=== PATIENT | female | born 1990 | race Caucasian/White ===

== ENCOUNTER → 2018-03-06 | Outpatient (CLI) | payer OTHER ==
--- NOTE | 2018-03-06 14:36 | RAD ---
CT of the abdomen and pelvis without contrast, 03/06/2018: HISTORY: Kidney infection, left flank pain Noncontrast scans were obtained utilizing the renal stone protocol. No intrarenal calculi are identified. The renal collecting systems and ureters are not dilated. No ureteral calculus is identified. Two pelvic calcifications on the left are probably phleboliths. The partially filled urinary bladder is unremarkable. The unopacified liver is unremarkable. No gallbladder abnormality is seen. The pancreas shows no abnormality. The spleen is of normal size. The uterus is at the upper limits of normal in size. The ovaries are unremarkable. The bowel loops are not dilated. There is a small amount of radiopaque material in the appendix. The appendix is not dilated and there is no evidence of appendiceal inflammation. No free fluid or free air is evident in the abdomen or pelvis. IMPRESSION: No urinary tract calculi are identified. PQRS Compliance Statement: One or more of the following individualized dose reduction techniques were utilized for this examination: 1. Automated exposure control 2. Adjustment of the mA and/or kV according to patient size 3. Use of iterative reconstruction technique Electronically signed by: Estuardo Scott MD (03/06/2018 2:32 PM) [facility]
== END | disposition home or self-care (01) ==
LOC: CT 13:57
PROVIDERS: ATTEND Physician Assistant
DX: N12 Tubulo-interstitial nephritis, not specified as acute or chronic (principal); M54.5 Low back pain; R35.0 Frequency of micturition
CPT/HCPCS: 74176

== ENCOUNTER → 2018-05-03 | Outpatient (CLI) | payer OTHER ==
[2018-05-03 15:33] LABS: BASO % 1 % (0-3); EOS % 1 % (0-3); HEMATOCRIT 42.2 % (36.0-47.0); LYMPH # 2.1 x10^3/uL (1.0-4.8); LYMPH % 41 % (24-48); MEAN CORPUSCULAR HEMOGLOBIN 28 pg (25-35); MEAN CORPUSCULAR HGB CONC 33 g/dL (31-37); MEAN CORPUSCULAR VOLUME 85 fL (79-100); MONO # 0.3 x10^3/uL (0.0-1.1); MONO % 6 % (0-9); NEUT # 2.7 x10^3uL (1.8-7.7); NEUT % 52 % (31-73); PLATELET COUNT 302 x10^3/uL (140-400); RED BLOOD COUNT 4.96 x10^6/uL (3.50-5.40); RED CELL DISTRIBUTION WIDTH 14.2 % (11.5-14.5); WHITE BLOOD COUNT 5.2 x10^3/uL (4.0-11.0)
[2018-05-03 15:49] LABS: ALBUMIN 4.2 g/dL (3.4-5.0); ALBUMIN/GLOBULIN RATIO 1.1 (1.0-1.7); CREATININE 0.7 mg/dL (0.6-1.0); GFR 99.6; POTASSIUM 3.7 mmol/L (3.5-5.1); TOTAL BILIRUBIN 0.5 mg/dL (0.2-1.0); TOTAL PROTEIN 7.9 g/dL (6.4-8.2)
[2018-05-04 05:12] LABS: ESTRADIOL LEVEL 62.1 pg/mL (.); FSH 8.4 mIU/mL (.); LUTEINIZING HORMONE 6.5 mIU/mL (.)
[2018-05-04 13:15] LABS: INSULIN LEVEL 5.2 uIU/mL (2.6-24.9)
[2018-05-04 13:24] LABS: FREE T4 0.99 ng/dL (0.76-1.46); THYROID STIM HORMONE (TSH) 1.614 uIU/mL (0.358-3.740)
[2018-05-05 23:12] LABS: ESTROGEN LEVEL 145 pg/mL (.)
[2018-05-06 09:10] LABS: TESTOSTERONE FREE 0.34 ng/dL (0.10-0.85); TESTOSTERONE TOTAL 30 ng/dL (8-48)
== END | disposition home or self-care (01) ==
LOC: LAB 15:09
PROVIDERS: ATTEND Nurse Practitioner Family
DX: E16.1 Other hypoglycemia (principal); R51 Headache; R53.1 Weakness
CPT/HCPCS: 36415; 80053; 82670; 82672; 83001; 83002; 83525; 84402; 84403; 84439; 84443; 85025

== ENCOUNTER 2018-09-03 10:25 | Emergency (ER) | payer OTHER ==
[~2018-09-03] VITALS: Ht 157.5 cm; Wt 70.3 kg
--- NOTE | 2018-09-03 11:13 | PHYS DOC ---
Past History Past Medical History: Other Additional Past Medical Histor: acute intermittent porphyria Past Surgical History: No Surgical History Smoking: Non-smoker Alcohol Use: None Drug Use: None Adult General Chief Complaint Chief Complaint: MULTIPLE TRAUMA/FALL [facility] HPI Patient is a 28-year-old female presents complaining of shortness of breath and upper abdominal pain for the past 4 days. She has been going through evaluation for porphyria because of having these symptoms multiple times previously and her most recent to test came back positive for this diagnosis. Denies any syncopal episode but felt like she was going to pass out earlier. She has not had any r elief with her home medicines. She attempted to contact her clinic at who is evaluating her for this and was directed to the emergency department. Reports that the pain is severe in nature. Left upper abdominal region[] Review of Systems Review of Systems Constitutional: Denies fever or chills [] Eyes: Denies change in visual acuity, redness, or eye pain [] HENT: Denies nasal congestion or sore throat [] Respiratory: Denies cough, see history of present illness[] Cardiovascular: No additional information not addressed in HPI [] GI: See history of present illness[] : Denies dysuria or hematuria [] Musculoskeletal: Denies back pain or joint pain [] Integument: Denies rash or skin lesions [] Neurologic: Denies headache, focal weakness or sensory changes [] Endocrine: Denies polyuria or polydipsia [] All other systems were reviewed and found to be within normal limits, except as documented in this note. Allergies Allergies Allergies Coded Allergies Type Severity Reaction Last Updated Verified No Known Drug Allergies 09/03/18 No Physical Exam Physical Exam Constitutional: Well developed, well nourished, no acute distress, non-toxic appearance. [] HENT: Normocephalic, atraumatic, bilateral external ears normal, oropharynx moist, no oral exudates, nose normal. [] Eyes: PERRLA, EOMI, conjunctiva normal, no discharge. [] Neck: Normal range of motion, no tenderness, supple, no stridor. [] Cardiovascular:Heart rate regular rhythm, no murmur [] Lungs & Thorax: Bilateral breath sounds clear to auscultation [] Abdomen: Bowel sounds normal, soft, tenderness in the left upper quadrant without rebound, guarding, or rigidity. She is able to sit up and lay back without any difficulty, no masses, no pulsatile masses. [] Skin: Warm, dry, no erythema, no rash. [] Back: No tenderness, no CVA tenderness. [] Extremities: No tenderness, no cyanosis, no clubbing, ROM intact, no edema. [] Neurologic: Alert and oriented X 3, normal motor function, normal sensory function, no focal deficits noted. [] Psychologic: Affect normal, judgement normal, mood normal. [] Current Patient Data Vital Signs Vital Signs Date Time Temp Pulse Resp B/P (MAP) Pulse Ox O2 Delivery O2 Flow Rate FiO2 09/03/18 10:40 97.5 89 20 100 Room Air EKG EKG EKG showed a sinus tachycardia at 107 bpm, normal axis, normal QTC, no ST elevation. No old EKG available for comparison. Interpreted by me at 1152.[] Radiology/Procedures Radiology/Procedures [] Course & Med Decision Making Course & Med Decision Making Pertinent Labs and Imaging studies reviewed. (See chart for details) ED course: Patient arrived, was placed in bed, and tolerated exam well. She was feeling much better after IV fluids and pain medicines. Her heart rate improved from the 100s to the 80s to 90s. She was oral intake tolerant. She was discharged in improved condition. Medical decision making: Patient in the process of evaluation for acute intermittent porphyria and has had positive tests 2 for this according to her. Believe this is an exacerbation of her porphyria. No evidence of intractable nausea and vomiting. No evidence of a PE. No evidence of pancreatitis.[] Dragon Disclaimer Dragon Disclaimer This electronic medical record was generated, in whole or in part, using a voice recognition dictation system. Departure Departure: Impression: Primary Impression: Acute intermittent porphyria Disposition: HOME, SELF-CARE Condition: IMPROVED Referrals: HOLLIS RIGGINS MD (PCP) Follow-up in 2 days Patient Instructions: Porphyria Additional Instructions: Follow-up with your regular doctor in 2 days. Return to the ER if worsening pain, unable to tolerate liquids, or any other concerns. Scripts Metoclopramide Hcl (REGLAN) 10 Mg Tablet 10 MG PO QID for nausea and vomiting, #30 TAB Prov: MALA VARELA DO 09/03/18 Hyoscyamine Sulfate (LEVSIN) 0.125 Mg Tablet 0.125 MG PO QID for abdominal pain/cramping, #30 TAB Prov: MALA VARELA DO 09/03/18 MALA VARELA DO Sep 03, 2018 11:13
[2018-09-03] MEDS ORDERED: IV DEXTROSE 10% 1,000 ML IV ONE (11:15)
[2018-09-03] MEDS ORDERED: IV 1/2 NORMAL SALINE 1,000 ML IV ONE (11:15)
[2018-09-03 11:29] LABS: BASO % 0 % (0-3); EOS # 0.1 x10^3/uL (0.0-0.7); EOS % 1 % (0-3); HEMOGLOBIN 15.3 g/dL (12.0-15.5); LYMPH # 0.6 x10^3/uL (1.0-4.8); LYMPH % 6 % (24-48); MEAN CORPUSCULAR HEMOGLOBIN 29 pg (25-35); MEAN CORPUSCULAR HGB CONC 34 g/dL (31-37); MEAN CORPUSCULAR VOLUME 85 fL (79-100); MONO # 0.4 x10^3/uL (0.0-1.1); MONO % 4 % (0-9); NEUT # 8.6 x10^3uL (1.8-7.7); NEUT % 88 % (31-73); PLATELET COUNT 259 x10^3/uL (140-400); RED BLOOD COUNT 5.29 x10^6/uL (3.50-5.40); WHITE BLOOD COUNT 9.7 x10^3/uL (4.0-11.0)
[2018-09-03] MEDS ORDERED: MORPHINE SULFATE 4 MG/ML DISP.SYRIN. IV ONE (11:30)
[2018-09-03] MEDS ORDERED: PROCHLORPERAZINE 10 MG/2 ML VIAL. IV ONE (11:30)
[2018-09-03 11:40] LABS: ALBUMIN 4.3 g/dL (3.4-5.0); ALBUMIN/GLOBULIN RATIO 1.1 (1.0-1.7); CALCIUM 9.2 mg/dL (8.5-10.1); CREATININE 0.8 mg/dL (0.6-1.0); GFR 85.4; POTASSIUM 3.9 mmol/L (3.5-5.1); TOTAL BILIRUBIN 0.9 mg/dL (0.2-1.0); TOTAL PROTEIN 8.2 g/dL (6.4-8.2)
[2018-09-03 11:59] LABS: BACTERIA,URINE 0 /HPF (0-FEW); BILIRUBIN,URINE NEG (NEG); CLARITY,URINE HAZY; COLOR,URINE YELLOW; GLUCOSE,URINE NEG (NEG); NITRITE,URINE NEG (NEG); RBC,URINE 0 /HPF (0-2); SQUAMOUS EPITHELIAL CELL,UR MOD /LPF; UROBILINOGEN,URINE 0.2 mg/dL (0.2 mg/dL); WBC,URINE RARE /HPF (0-4)
[2018-09-03] MEDS ORDERED: HYOS0.1264 PO (12:26)
[2018-09-03] MEDS ORDERED: METO10TA81 PO (12:26)
[2018-09-03 12:42] VITALS: BP 119/64
--- NOTE | 2018-09-03 16:09 | EKG ---
[address] [address] Test Date: 2018-09-03 Test Time: 11:51:19 Pat Name: ALAINA RAND Department: Room: Gender: F Education Spec: ROEL : 1990 Requested By: MALA VARELA Order Number: [id number] Reading MD: Measurements Intervals Edmond Rate: 107 P: 63 RI: 90 QRS: 75 QRSD: 82 T: 43 QT: 340 QTc: 459 Interpretive Statements SINUS TACHYCARDIA QRS(T) CONTOUR ABNORMALITY CONSIDER ANTEROLATERAL MYOCARDIAL DAMAGE POSSIBLY ABNORMAL ECG RI6.01 No previous ECG available for comparison
== END 2018-09-03 12:44 | disposition home or self-care (01) ==
LOC: ER 10:25
DX: E80.29 Other porphyria (principal)
CPT/HCPCS: 36415; 80053; 81001; 83690; 85025; 85379; 85610; 93005; 96374; 96375; 99285; J0780; J2270; J7030

== ENCOUNTER 2018-12-03 03:20 | Emergency (ER) | payer OTHER ==
[~2018-12-03] VITALS: Ht 157.5 cm; Wt 70.3 kg
[~2018-12-03 03:20] MED LIST: HYOS0.1264 PO; METO10TA81 PO
[2018-12-03 03:22] VITALS: BP 122/79
[2018-12-03] MEDS ORDERED: guaiFENesin DM 600/30MG 1 TAB TAB.ER.12H PO STA (03:46)
[2018-12-03] MEDS ORDERED: guaiFENesin DM 600/30MG 1 TAB TAB.ER.12H PO ONE (03:47)
[2018-12-03] MEDS ORDERED: GUAI-112 PO (03:56)
[2018-12-03] MEDS ORDERED: AMOX500T PO (03:56)
[2018-12-03] MEDS ORDERED: MELO7.5T29 PO (03:56)
--- NOTE | 2018-12-03 03:56 | PHYS DOC ---
Past History Past Medical History: Other Additional Past Medical Histor: acute intermittent porphyria Past Surgical History: Other Smoking: Non-smoker Alcohol Use: None Drug Use: None Adult General Chief Complaint Chief Complaint: EARACHE/EAR PAIN HPI HPI Patient is a 28-year-old female who is been having some intermittent your discomfort over the past several weeks. Tonight at approximately midnight she was blowing to try to equalize the pressure in her ears and had increased pain in her right ear that will not stop since that time. No relief with trying hydrogen peroxide. No significant sinus congestion. No nausea, vomiting, or dizziness. No relief with acetaminophen. She reports being unable to sleep due to the pain. Pain is sharp and moderate to severe. No radiation of the discomfort.[] Review of Systems Review of Systems Constitutional: Denies fever or chills [] Eyes: Denies change in visual acuity, redness, or eye pain [] HENT: Denies nasal congestion or sore throat, see history of present illness [] Respiratory: Denies cough or shortness of breath [] Cardiovascular: No additional information not addressed in HPI [] GI: Denies abdominal pain, nausea, vomiting, bloody stools or diarrhea [] : Denies dysuria or hematuria [] Musculoskeletal: Denies back pain or joint pain [] Integument: Denies rash or skin lesions [] Neurologic: Denies headache, focal weakness or sensory changes [] Endocrine: Denies polyuria or polydipsia [] All other systems were reviewed and found to be within normal limits, except as documented in this note. Current Medications Current Medications Current Medications Medications (Trade) Dose Ordered Sig/Henrik Start Time Stop Time Status Last Admin Dose Admin Guaifenesin (MUCINEX ER with DM) 1 tab STK-MED ONCE 12/03/18 03:47 12/03/18 03:48 DC Allergies Allergies Allergies Coded Allergies Type Severity Reaction Last Updated Verified acetaminophen Allergy Unknown 12/03/18 Yes oxycodone Allergy Unknown 12/03/18 Yes Physical Exam Physical Exam Constitutional: Well developed, well nourished, no acute distress, non-toxic appearance. [] HENT: Normocephalic, atraumatic, bilateral external ears normal, no pain with tragus tug. Right TM is bulging, small fluid meniscus. Left TM is normal. Oropharynx moist, no oral exudates, nose normal. [] Eyes: PERRLA, EOMI, conjunctiva normal, no discharge. [] Neck: Normal range of motion, no tenderness, supple, no stridor. [] Cardiovascular:Heart rate regular rhythm, no murmur [] Lungs & Thorax: Bilateral breath sounds clear to auscultation [] Abdomen: Not examined. [] Skin: Warm, dry, no erythema, no rash. [] Back: No tenderness, no CVA tenderness. [] Extremities: No tenderness, no cyanosis, no clubbing, ROM intact, no edema. [] Neurologic: Alert and oriented X 3, normal motor function, normal sensory funct ion, no focal deficits noted. [] Psychologic: Affect normal, judgement normal, mood normal. [] Current Patient Data Vital Signs Vital Signs Date Time Temp Pulse Resp B/P (MAP) Pulse Ox O2 Delivery O2 Flow Rate FiO2 12/03/18 03:22 97.8 75 18 100 Room Air EKG EKG [] Radiology/Procedures Radiology/Procedures [] Course & Med Decision Making Course & Med Decision Making Pertinent Labs and Imaging studies reviewed. (See chart for details) ED course and medical decision making: Patient arrived, was placed in bed, and tolerated exam well. She was given initial doses of medicine in the emergency department. Discussed findings and plan with the patient voiced understanding. All questions were answered. She was discharged in improved condition. This appears to be an otitis media with eustachian tube dysfunction on the right side. There is no evidence of meningitis, encephalitis, perforated tympanic membrane, nor systemic toxicity. No mastoiditis.[] Dragon Disclaimer Dragon Disclaimer This electronic medical record was generated, in whole or in part, using a voice recognition dictation system. Departure Departure: Impression: Primary Impression: Right otitis media Additional Impression: Eustachian tube dysfunction Disposition: 01 HOME, SELF-CARE Condition: IMPROVED Referrals: ALVAREZ MÁRQUEZ (PCP) Follow-up in 2 days Patient Instructions: Otitis Media, Adult Additional Instructions: Follow-up with your regular doctor in 2 days. Take the medication as prescribed. Return to the ER if worsening discomfort or any other concerns. Scripts Guaifenesin/Pseudoephedrne Hcl (MUCINEX D ER 600-60 MG TABLET) 1 Each Tab.er.12h 1 EACH PO BID for eustacian tube dysfunction for 10 Days, #20 TAB.SR Prov: EULALIAASHISHMALA DOSHI 12/03/18 Meloxicam (MELOXICAM) 7.5 Mg Tablet 7.5 MG PO DAILY for PAIN, #20 TAB Prov: MALA VARELA DO 12/03/18 Amoxicillin (AMOXICILLIN) 500 Mg Tablet 500 MG PO TID for Otitis media for 10 Days, #30 TAB Prov: MALA VARELA DO 12/03/18 Problem Qualifiers Primary Impression: Right otitis media Otitis media type: unspecified Qualified Codes: H66.91 - Otitis media, unspecified, right ear Additional Impression: Eustachian tube dysfunction Laterality: right Qualified Codes: H69.81 - Other specified disorders of eustachian tube, right ear MALA VARELA DO Dec 03, 2018 03:56
[2018-12-03] MEDS ORDERED: IBUPROFEN 600 MG TABLET. PO ONE (04:30)
[2018-12-03] MEDS ORDERED: AMOXICILLIN 250 MG CAPSULE PO ONE (04:30)
== END 2018-12-03 04:00 | disposition home or self-care (01) ==
LOC: ER 03:20
DX: H66.91 Otitis media, unspecified, right ear (principal); H69.81 Other specified disorders of Eustachian tube, right ear; Z88.6 Allergy status to analgesic agent; Z88.5 Allergy status to narcotic agent
CPT/HCPCS: 99284